=== PATIENT | female | born 1995 | race Caucasian/White ===

== ENCOUNTER 2023-07-26 13:46 | Emergency (ER) | payer MEDICAID ==
[~2023-07-26] VITALS: Ht 167.6 cm; Wt 95.0 kg
[2023-07-26 14:00] VITALS: BP 145/79; PULSE 85; RESP 18; TEMP 98; O2SAT 95
[2023-07-26] MEDS ORDERED: TOBRSUS35 RIGHTEYE (15:39)
== END 2023-07-26 15:47 | disposition home or self-care (01) ==
LOC: ER 13:46
DX: H10.33 Unspecified acute conjunctivitis, bilateral (principal)

== ENCOUNTER 2023-12-07 00:39 | Emergency (ER) | payer MEDICAID ==
[~2023-12-07] VITALS: Ht 167.6 cm; Wt 90.0 kg
[~2023-12-07 00:39] MED LIST: TOBRSUS35 RIGHTEYE
[2023-12-07 00:56] VITALS: BP 95/78; PULSE 101; RESP 18; TEMP 97.9; O2SAT 99
[2023-12-07] MEDS ORDERED: IBUPROFEN 800 MG TAB PO ONE (04:30)
[2023-12-07] MEDS ORDERED: NEOMYCIN-BACITRACIN-POLYM UNITDOSE PKG TOP OINT TOP ONE (04:30)
[2023-12-07] MEDS ORDERED: IBUP1TAB5 PO (04:33)
[2023-12-07] MEDS ORDERED: MUPI2OIN2 EX (04:33)
[2023-12-07] MEDS ORDERED: CEPH500C PO (04:33)
[2023-12-07] MEDS ORDERED: TETANUS-DIPTH-ACEL PERTUSSIS 0.5ML SYR Tdap IM ONE (04:45)
[2023-12-07] MEDS: IBUPROFEN 800 MG TAB PO SCH ×3 (05:00→05:15)
[2023-12-07] MEDS ORDERED: NEOMYCIN-BACITRACIN-POLYM UNITDOSE PKG TOP OINT TOP SCH (05:00)
[2023-12-08] MEDS ORDERED: IBUPROFEN 800 MG TAB PO SCH (05:00)
== END 2023-12-07 05:21 | disposition home or self-care (01) ==
LOC: ER 00:39
DX: S00.33XA Contusion of nose, initial encounter (principal); S00.531A Contusion of lip, initial encounter; F10.10 Alcohol abuse, uncomplicated; V87.8XXA Person injured in other specified noncollision transport accidents involving motor vehicle (traffic), initial encounter; Y93.89 Activity, other specified; Y92.89 Other specified places as the place of occurrence of the external cause; Y99.8 Other external cause status
CPT/HCPCS: 70450; 70486; 90471; 90715